=== PATIENT | male | born 1945 | race Caucasian/White ===

== ENCOUNTER 2017-02-24 10:11 | Outpatient (CLI) | payer MEDICARE ==
[~2017-02-24] VITALS: Ht 188 cm; Wt 103.9 kg
[~2017-02-24 10:11] MED LIST: ALPR0.5T PO; AMLO10TA PO; AMLO10TA2 PO; AMLO10TA82 PO; ASP81CT PO; ASPI-266 PO; ATEN-147 PO; ATEN-158 PO; ATEN25TA PO; CEFA500C PO; CITA40TA19 PO; CLON-406 PO; CLOP75TA PO; CLOP75TA69 PO; DULO60CA58 PO; HYDR-2854 PO; HYDR-34 PO; HYDR-3816 PO; HYDR-756 PO; LISI1TAB PO; LISI20TA PO; LISINOPRIL/HCTZ PO; LOSA100T28 PO; OXYC-12 PO; PNT40TEC PO; PRAS10TA6 PO; RISP0.5T2 PO; RISP1TAB2 PO; ROSU20TA PO; RSP2T PO; SIMV40TA4 PO
[2017-02-24] MEDS ORDERED: PENT400T2 PO (10:23)
[2017-02-24 10:29] VITALS: BP 156/82
== END 2017-02-24 11:03 | disposition home or self-care (01) ==
LOC: PREOP 10:11
PROVIDERS: ATTEND Orthopaedic Surgery
DX: Z01.818 Encounter for other preprocedural examination (principal); Z11.2 Encounter for screening for other bacterial diseases; M70.22 Olecranon bursitis, left elbow; G56.22 Lesion of ulnar nerve, left upper limb
CPT/HCPCS: 87081

== ENCOUNTER 2017-03-02 07:45 | Day surgery (SDC) | payer MEDICARE ==
--- NOTE | 2017-02-28 07:35 | HISTORY AND PHYSICAL ---
DICTATING PHYSICIAN: Dr. Sanders DATE OF ADMISSION: 03/02/2017 Outpatient surgery for left elbow ulnar nerve transposition and olecranon bursectomy. HISTORY: The patient is a 71-year-old, [id number] gentleman with complaints of left elbow pain and swelling. He also reports paresthesias in his small and ring fingers. He reports this has been progressive in nature. He denies any specific injuries. Due to functional impairment and failure to improve with conservative measures, the patient has elected to proceed with surgical intervention. REVIEW OF SYSTEMS: No chest pain, no shortness of breath. No dysuria. PAST MEDICAL HISTORY: 1. Hypertension. 2. Hyperlipidemia. 3. Heart valve disease. 4. COPD. 5. Peripheral vascular disease. 6. Anxiety. PAST SURGICAL HISTORY: 1. Bilateral knees. 2. Right elbow. 3. Coronary artery bypass. 4. Left total knee arthroplasty. 5. Left total knee revision. 6. Right stem tibia bypass. 7. Left stem popliteal bypass. 8. Balloon angioplasty right lower extremity. FAMILY HISTORY: Noncontributory. PRIMARY CARE PROVIDER: Atiya Rowley at [place]. MEDICATIONS: 1. Amlodipine. 2. Plavix. 3. Atenolol. 4. Aspirin. 5. Cymbalta. 6. Losartan. 7. Rosuvastatin. 8. Pentoxifylline. ALLERGIES: BACTRIM. SOCIAL HISTORY: The patient is a former smoker, drinks alcohol socially. PHYSICAL EXAMINATION: The patient is well-developed, well-nourished, in no acute distress. HEENT: Normocephalic, atraumatic. Pupils are equal, round and reactive to light. Oropharynx is clear. NECK: Supple. No lymphadenopathy. LUNGS: Clear to auscultation bilaterally. HEART: Regular rate and rhythm. ABDOMEN: Soft, nontender, nondistended. EXTREMITY EXAM: The left elbow demonstrates a subluxing ulnar nerve when moving from extension to flexion. He is tender over this area. He has a positive Tinel's over the ulnar nerve at the medial epicondyle. At his olecranon bursa there is a monitored fluid-filled sac consistent with olecranon bursitis. There is no erythema or warmth. IMPRESSION: 1. Left subluxing ulnar nerve. 2. Olecranon bursitis. PLAN: 1. Left ulnar nerve transposition. 2. Left olecranon bursectomy. The risks, benefits, options, ramifications and recovery were discussed in length with the patient and he understands and wishes to proceed. Job ID: [id number] Dictated Date: 02/22/2017 11:23:00 Direct Marketing Specialist Date: 02/22/2017 12:07:50/reena
[~2017-03-02] VITALS: Ht 188 cm; Wt 103.9 kg
[~2017-03-02 07:45] MED LIST changes: +PENT400T2 PO
[2017-03-02] MEDS ORDERED: morphine PF (DURAMORPH) 10 MG/10 ML AMP ONE (08:05)
[2017-03-02] MEDS ORDERED: BUPIVACAINE 0.25% 30 ML (SENSORCAINE) VIAL ONE (08:05)
[2017-03-02] MEDS ORDERED: ceFAZolin 1,000 MG (ANCEF) VIAL ONE (08:13)
[2017-03-02] MEDS ORDERED: NS (IVPB) 50 ML ONE (08:14)
[2017-03-02 08:20] VITALS: BP 170/72
[2017-03-02] MEDS ORDERED: ceFAZolin 1 GM/NS 50 ML IVPB IV ONE ×2 (08:45)
[2017-03-02] MEDS ORDERED: CATHETER FLUSH 10 ML SYR IV PRN (08:45)
[2017-03-02] MEDS ORDERED: LACTATED RINGERS 1,000 ML IV SCH (09:00)
[2017-03-02] MEDS ORDERED: MIDAZOLAM 2 MG/2 ML (VERSED) VIAL ONE (09:01)
[2017-03-02] MEDS ORDERED: LIDOCAINE PF 2% 10 ML (XYLOCAINE) AMP ONE (09:01)
[2017-03-02] MEDS ORDERED: proPOfol 200 MG/20 ML (DIPRIVAN) VIAL IV ONE (09:01)
[2017-03-02] MEDS ORDERED: SEVOFLURANE (ULTANE) 15 ML INHAL SOLN ONE ×4 (09:01→10:13)
[2017-03-02] MEDS ORDERED: fentaNYL INJECTION 100 MCG/2 ML AMP ONE (09:01)
[2017-03-02] MEDS ORDERED: LIDOCAINE 1% INJ 20 ML (XYLOCAINE) VIAL ONE (09:02)
[2017-03-02] MEDS ORDERED: LACTATED RINGERS 1,000 ML IV PRN (09:13)
--- NOTE | 2017-03-02 09:13 | Progress Note-Pre Operative ---
Pre-Operative Progress Note H&P Reviewed The H&P was reviewed, patient examined and no changes noted. Date H&P Reviewed: Mar 02, 2017 Time H&P Reviewed: 09:12 Pre-Operative Diagnosis: left cubital tunnel syndrome and olecranon bursitis PRERNA SOLANO MD Mar 02, 2017 09:13
[2017-03-02] MEDS ORDERED: HYDROcodone/APAP 7.5 MG/325 MG (LORTAB, LORCET PLUS) TABLET PO PRN (09:15)
--- NOTE | 2017-03-02 09:17 | Progress Note-Post Operative ---
Post-Operative Progess Note Surgeon (s)/Castings Drafter (s) Surgeon PRERNA SOLANO MD Castings Drafter: Flaco Santana Pre-Operative Diagnosis left cubital tunnel syndrome and olecranon bursitis Post-Operative Diagnosis 1. left cubital tunnel syndrome 2. left olecranon bursitis Post-Op Procedure Note Date of Procedure: Mar 02, 2017 Name of Procedure Performed: left ulnar nerve transposition left olecranon bursectomy Description of the Procedure: see operative note Findings of the Procedure subluxing ulnar nerve Anesthesia Type GETA Estimated blood loss (mL): 50 ml Packing: none Specimen(s) collected/removed none PRERNA SOLANO MD Mar 02, 2017 09:17
[2017-03-02] MEDS ORDERED: LACTATED RINGERS 1,000 ML IV ONE (10:21)
[2017-03-02] MEDS ORDERED: morphine INJ 10 MG/ML 1ML (SYR OR VIAL) IVP PRN (10:45)
[2017-03-02] MEDS ORDERED: fentaNYL INJECTION 100 MCG/2 ML AMP IVP PRN (10:45)
[2017-03-02 11:20] VITALS: BP 150/61
[2017-03-02] MEDS ORDERED: HYDR-3816 PO (11:34)
[2017-03-02 11:50] VITALS: BP 149/67
--- NOTE | 2017-03-02 14:58 | OPERATIVE REPORT ---
PROCEDURE PHYSICIAN: PRERNA SOLANO DATE OF PROCEDURE: 03/02/2017 PREOPERATIVE DIAGNOSIS: 1. Left cubital tunnel syndrome with subluxing ulnar nerve. 2. Left olecranon bursitis. PROCEDURE: 1. Left ulnar nerve transposition. 2. Left olecranon bursectomy. SURGEON: Marilyn ASTRONOMY TEACHER: Flaco Santana who assisted throughout the procedure and closed the incisions. ANESTHESIA: General endotracheal by a Pa Martinez CRNA. DRAINS: None. COMPLICATIONS: None. ESTIMATED BLOOD LOSS: 50 mL. POSTOPERATIVE PLAN: Routine, range of motion exercises. The patient was transported to the recovery room, awake, in stable condition. STATEMENT OF MEDICAL NECESSITY: The patient is a 71-year-old, [id number]-[id number] gentleman with complaints of left ring and small finger paresthesias and pain. EXAMINATION: On exam he had a positive Tinel's over his ulnar nerve, which was subluxing over his medial epicondyle with flexion and extension at the elbow this reproduces his symptoms. In addition he had a fluid-filled mass on his olecranon area with no erythema or warmth; it was felt to be olecranon bursitis. Due to functional impairment and failure to improve with conservative measures, the patient elected to proceed with surgical intervention. PROCEDURE: After risks and benefits of the procedure were discussed and questions were answered an informed consent was signed and placed on chart. The operative site was confirmed in the preoperative holding area and initialed by the surgeon. The patient was then transported to the operating room and after adequate levels of general endotracheal anesthetic were obtained, a timeout was called confirming the operative site. The left upper extremity prepped and draped in the usual sterile fashion. With arm elevated, the tourniquet was inflated 250 mmHg. An "L" shaped incision was made posterior to the medial epicondyle. The ulnar nerve was anterior to the medial epicondyle with dense scar tissue overlying. The scar tissue was carefully dissected and the nerve was free to 0.9 cm proximal to the medial epicondyle and into the flexor/pronator mass. The nerve demonstrated fusiform swelling at the point overlying the medial epicondyle but the nerve was intact. A posteriorly based fascial flap was then made off of the medial epicondyle and with the nerve transposed anteriorly, the fascial flap was sewn to the deep subcutaneous tissue, being careful to protect the ulnar nerve. The elbow was taken through a range of motion. The ulnar nerve was stable with no impingement noted in the transposed position. The wound was copiously irrigated. 2-0 Vicryl was used to reapproximate subcutaneous tissue and the skin was closed with 4-0 nylon in a running, alternating horizontal mattress fashion. A longitudinal incision was then made over the olecranon bursal area. The underlying soft tissues were carefully dissected and hemostasis was obtained with cautery. The bursal sac was identified and excised completely. No abnormal tissue was noted and no necrosis was noted. Hemostasis was obtained with cautery. The tourniquet was deflated for total tourniquet time of 38 minutes. Pressure was used for hemostasis. The wound was copiously irrigated. 2-0 Vicryl was used to reapproximate subcutaneous tissue and the skin was closed with 4-0 nylon in a running, alternating horizontal mattress fashion. A soft dressing was applied after infiltrating the incisions with plain Marcaine. A soft dressing was applied. The patient was transported to the recovery awake, in stable condition. Job ID: [id number] Dictated Date: 03/02/2017 10:27:46 Medical Records Receptionist Date: 03/02/2017 14:41:03 / reena
== END 2017-03-02 12:05 | disposition home or self-care (01) ==
LOC: SDC 07:45
PROVIDERS: ATTEND Orthopaedic Surgery
DX: G56.22 Lesion of ulnar nerve, left upper limb (principal); M70.22 Olecranon bursitis, left elbow; I10 Essential (primary) hypertension; E78.5 Hyperlipidemia, unspecified; J44.9 Chronic obstructive pulmonary disease, unspecified; F41.9 Anxiety disorder, unspecified; Z96.652 Presence of left artificial knee joint; Z95.1 Presence of aortocoronary bypass graft; Z87.891 Personal history of nicotine dependence; Z79.899 Other long term (current) drug therapy

== ENCOUNTER → 2018-03-06 | Outpatient (CLI) | payer MEDICARE ==
[~2018-03-06] MED LIST changes: +CATHETER FLUSH 10 ML SYR IV PRN; -HYDR-3816 PO; +IOHEXOL 350 MG/ML 100 ML (OMNIPAQUE 350) VIAL IV ONE; +NS 250 ML (IVPB) BAG IV ONE; -PENT400T2 PO; +PENT400T9 PO
--- NOTE | 2018-03-06 12:15 | Diagnostic Imaging Report ---
INDICATION: Carotid stenosis. TECHNIQUE: Bolus IV contrast injection was performed. 3D MIP imaging was also performed. COMPARISON: No prior studies are available for comparison. FINDINGS: There is a three-vessel branching pattern to the aortic arch. There is calcified plaque in both common carotid arteries as well as the proximal left subclavian and brachiocephalic artery. No high-grade stenosis within the common carotid arteries is seen. There is calcified plaque at the bifurcations. There is heavy plaquing in the proximal internal carotid arteries bilaterally just beyond the origins. There appear to be approximately 70-80% diameter stenoses of the proximal internal carotid arteries bilaterally. No complete occlusion is identified. There is flow distally. The vertebral arteries appear to be codominant. No definite vertebral stenosis is identified. The left thyroid does contain a small approximately 5 mm nodule. IMPRESSION: Findings are consistent with 70-80% diameter stenoses of the proximal internal carotid arteries bilaterally. Dictated by: Dictated on workstation # [id number]
== END ==
LOC: RAD 09:27
PROVIDERS: ATTEND Internal Medicine Cardiovascular Disease
DX: I65.23 Occlusion and stenosis of bilateral carotid arteries (principal)
CPT/HCPCS: 70498

== ENCOUNTER → 2018-03-08 | Outpatient (CLI) | payer MEDICARE ==
[~2018-03-08] VITALS: Ht 188 cm; Wt 97.1 kg
[~2018-03-08] MED LIST changes: -IOHEXOL 350 MG/ML 100 ML (OMNIPAQUE 350) VIAL IV ONE; -NS 250 ML (IVPB) BAG IV ONE; +REGADENOSON 0.4 MG/5 ML SYR (LEXISCAN) IV ONE
[2018-03-08 13:07] VITALS: BP 158/62
--- NOTE | 2018-03-08 20:15 | STRESS TEST ---
DATE OF SERVICE: 03/08/2018 LEXISCAN MYOVIEW STRESS TEST REPORT REFERRING PHYSICIAN: JACOBO Mahoney Baseline heart rate is 60. Baseline blood pressure 171/70. Baseline EKG sinus rhythm with no ischemic changes. In summary, the patient received 10.83 mCi of technetium-99 Myoview and the resting images were obtained. Then, the patient received 0.4 mg of Lexiscan followed by 32.4 mCi of technetium-99 Myoview. Throughout the test, there were no EKG changes. The resting stress images were reviewed and compared in the short axis, horizontal long axis, and vertical long axis views. Review of the images showed diaphragmatic attenuation with decreased uptake involving the mid to apical inferior wall and inferoseptum with mild reversibility. SSS is 4, SDS 2, TID value is 1.03. On the gated images, the left ventricle appeared to be prominent with mild diffuse hypokinesia, calculated ejection fraction 45%. CONCLUSION: 1. The patient tolerated Lexiscan well. 2. Diaphragmatic attenuation with mild decreased uptake at the mid to apical inferior wall and inferoseptum with mild reversibility. 3. Prominent left ventricle with mild diffuse left ventricular hypokinesia, calculated ejection fraction 45%. Job ID: [id number] DocumentID: [id number] Dictated Date: 03/08/2018 16:36:50 Airplane Electrician Date: 03/08/2018 20:14:47 Dictated By: MATEO CHACKO MD
== END ==
LOC: CARD 11:17
PROVIDERS: ATTEND Internal Medicine Cardiovascular Disease
DX: I25.10 Atherosclerotic heart disease of native coronary artery without angina pectoris (principal); I10 Essential (primary) hypertension; E78.5 Hyperlipidemia, unspecified; I73.9 Peripheral vascular disease, unspecified; R06.02 Shortness of breath
CPT/HCPCS: 78452; 93017